=== PATIENT | female | born 1970 | race Caucasian/White ===

== ENCOUNTER 2021-03-14 21:44 | Inpatient (IN) | payer BC, SELFPAY ==
[2021-03-15] MEDS: QUEtiapine Fumarate 25 MG TABLET 12.5 MG PO (02:06)
[2021-03-15] MEDS: Melatonin 3 MG TABLET 6 MG PO (02:08)
--- NOTE | 2021-03-15 02:20 | PC.NURSE ---
Pt is a 50yr old female presented to [facility] after taking 12 1000mg gabapentin. Admitted to M5 unit at 2125 via stretcher. lithographic plate maker was notified put it admitting orders and medications. On admision pt was alert and oriented x4. Flat, depressed affect but cooperative when engaged. Denied physical Pain VSS. When asked to describe reason for admission in own words stated 'i took extra medication to help me sleep, i have been telling everyone i have trouble falling asleep. My got scared and called the ambulance Denied SI. Stated I hope my medications are fixed so I can sleep pt stated to be crying more due to not sleeping, cries due to anxiety over sleep, not sleeping and being tired from not sleeping. Pt stated thi is her first psychiatric admission. For past medical history stated in December i felt my heart beating really fast pt's coworkers called ambulance, pt placed on heart monitor for a month. Was supposed to go get results yesterday. Denied any other medical issues. Stated to have decreased appetite past two weeks. Nurse to nurse was completed prior to admission. Pt signed CV and 3-day. Initial treatment plan completed. Given pm medications. Went to sleep. Currently laying in bed with eyes closed normal respirations. Will continue to monitor and offer support as needed.
--- NOTE | 2021-03-15 05:20 | PC.NURSE ---
PT SIGNED A 3 DAY NOTICE WHICH WILL BE UP ON 03/20/21 (03/19/21 IS A HOLIDAY).
[2021-03-15 06:00] VITALS: BP 131/62; PULSE 67; RESP 18; TEMP 36.5; O2SAT 97
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
[2021-03-15] MEDS: clonazePAM 0.5 MG TABLET PO ×2 (14:33→21:17)
[2021-03-15] MEDS: Lidocaine 4 % Patch ADH..PATCH 1 PATCH TRANSDERMA (16:51)
[2021-03-15] MEDS: Acetaminophen 325 MG TABLET 650 MG PO (16:52)
[2021-03-15 19:02] VITALS: BP 119/66; PULSE 103; TEMP 36.3
[2021-03-15] MEDS: Mirtazapine 15 MG TABLET PO (21:16)
[2021-03-15] MEDS: QUEtiapine Fumarate 25 MG TABLET PO (21:16)
[2021-03-16 06:00] VITALS: BP 112/55; PULSE 54; RESP 18; TEMP 36.7; O2SAT 95
[2021-03-16 07:50] LABS: MANUAL DIFF FLAG NO
[2021-03-16 07:52] LABS: Basophils Absolute Auto 0.1 X10*3/uL (0.0-0.2); Basophils Percent Auto 1.1 % (0-2); Eosinophils Absolute Auto 0.2 X10*3/uL (0.0-0.4); Eosinophils Percent Auto 2.7 % (0-4); Hematocrit 35.4 % (37-47); Hemoglobin 10.6 g/dl (12.0-16.0); Imm Gran Abs Auto 0.02 X10*3/uL (0.00-0.03); Imm Gran Pct Auto 0.3 % (0.0-0.4); Lymphocytes Absolute Auto 2.5 X10*3/uL (1.2-4.9); Lymphocytes Percent Auto 35.1 % (20-40); Mean Corpuscular HGB Conc 29.9 g/dl (31.0-35.0); Mean Corpuscular Volume 70.2 fL (80-98); Mean Platelet Volume 10.2 fL (9.4-12.3); Monocytes Absolute Auto 0.6 X10*3/uL (0.1-1.2); Neutrophils Absolute Auto 3.7 X10*3/uL (2.0-8.3); Neutrophils Percent Auto 52.8 % (45-73); Platelet Count 325 X10*3/uL (160-400); Red Blood Count 5.04 X10*6/uL (4.20-5.50); Red Cell Distribution Width 19.8 % (11.0-16.0)
[2021-03-16 08:08] LABS: Cholesterol 186 mg/dL; HDL Cholesterol 44 mg/dL; LDL Cholesterol Calculated 128 mg/dl; Triglycerides 70 mg/dL
[2021-03-16 08:18] LABS: Anion Gap 9 (12-20); Blood Urea Nitrogen 12 mg/dL (9-16); Carbon Dioxide 30 mmol/L (22-29); Chloride 110 mmol/L (96-108); Potassium 4.3 mmol/L (3.3-5.1); Sodium 145 mmol/L (135-145)
[2021-03-16 08:19] LABS: Alanine Aminotransferase 16 U/L (0-31); Alkaline Phosphatase 67 U/L (39-117); Aspartate Amino Transferase 19 U/L (5-31); Bilirubin Total 0.7 mg/dL (0.0-1.0); Calcium 9.5 mg/dL (8.4-10.2); Estimated Glomerular Filt Rate > 60; Glucose Random 75 mg/dL (60-115); Total Protein 7.1 g/dL (6.5-8.0)
[2021-03-16 08:31] LABS: TSH reflex Free T4 1.93 uIU/mL (0.32-4.0)
[2021-03-16 08:37] LABS: Estimated Average Glucose 85 mg/dL; Hemoglobin A1c % 4.6 %
[2021-03-16 08:43] LABS: Folate 4.2 ng/mL (> or = 4.0); Vitamin B12 222 pg/mL (200-900)
[2021-03-16] MEDS: clonazePAM 0.5 MG TABLET PO ×2 (09:00→20:50)
--- NOTE | 2021-03-16 15:35 | HO.PSYCHPN ---
Subjective Subjective Date of Service: 03/16/21 Reason For Visit: depressive disorder, anxiety disorder Interim History: Pt reports she was able to sleep last night. Tearful when discussing precipitant to admission Very fearful of commitment-asking several questions. Discussed some issues at work and was able to problem solve regarding her return. Discussed self care with pt today Denies SI-decrease in my mind racing at night Review of Systems Psychiatric: Reports abnormal sleep pattern, Reports anxiety, Reports depression and Reports suicidal ideation (denies) Mental Status Exam Mental Status Exam Patient Appearance: Appropriate Patient Orientation: Person, Place, Time and Situation Level of Consciousness: Alert Patient Behavior: Talkative and Good Eye Contact Mood Description: Depressed, Anxious and Apprehensive Affect Description: Flat Patient Cognition Impaired: No Ability to Follow Directions: Good Speech Pattern: Spontaneous Speech Memory Description: Intact Hallucinations: None Delusions: Not Present Thought Process: Distracted and Rumination Thought Content: positive for Intact and positive for Circumstantial Depressive Symptoms: Increased Anxiety, Insomnia and Difficulty Sleeping Judgement: Good Diagnostics Vital Signs (24Hr): Vital Signs - 24 hr 03/15/21 19:02 03/16/21 06:00 Temperature 97.3 F 98.0 F Pulse Rate 103 H 54 Respiratory Rate 18 Blood Pressure 119/66 112/55 L Pulse Oximetry 95 Labs Results: 03/16/21 07:44 03/16/21 07:44 Labs: Laboratory Results - last 48 hr 03/16/21 03/16/21 03/16/21 07:44 07:44 07:44 WBC 7.0 RBC 5.04 Hgb 10.6 L Hct 35.4 L MCV 70.2 L MCH 21.0 L MCHC 29.9 L RDW 19.8 H Plt Count 325 MPV 10.2 Immature Gran % (Auto) 0.3 Neut % (Auto) 52.8 Lymph % (Auto) 35.1 [place] % (Auto) 8.0 Eos % (Auto) 2.7 Baso % (Auto) 1.1 Lymph # (Auto) 2.5 [place] # (Auto) 0.6 Eos # (Auto) 0.2 Baso # (Auto) 0.1 Abs Immat Gran (auto) 0.02 Absolute Neuts (auto) 3.7 Absolute Nucleated RBC 0.000 Nucleated RBC % (auto) 0.0 Sodium Potassium Chloride Carbon Dioxide Anion Gap BUN Creatinine Estim Creat Clear Calc Estimated GFR Random Glucose Estimat Average Glucose Hemoglobin A1c % Calcium Total Bilirubin AST ALT Alkaline Phosphatase Total Protein Albumin Triglycerides 70 Cholesterol 186 LDL Cholesterol, Calc 128 HDL Cholesterol 44 Vitamin B12 222 Folate 4.2 TSH 03/16/21 03/16/21 07:44 07:44 WBC RBC Hgb Hct MCV MCH MCHC RDW Plt Count MPV Immature Gran % (Auto) Neut % (Auto) Lymph % (Auto) [place] % (Auto) Eos % (Auto) Baso % (Auto) Lymph # (Auto) [place] # (Auto) Eos # (Auto) Baso # (Auto) Abs Immat Gran (auto) Absolute Neuts (auto) Absolute Nucleated RBC Nucleated RBC % (auto) Sodium 145 Potassium 4.3 Chloride 110 H Carbon Dioxide 30 H Anion Gap 9 L BUN 12 Creatinine 0.72 Estim Creat Clear Calc TNP Estimated GFR > 60 Random Glucose 75 Estimat Average Glucose 85 Hemoglobin A1c % 4.6 Calcium 9.5 Total Bilirubin 0.7 AST 19 ALT 16 Alkaline Phosphatase 67 Total Protein 7.1 Albumin 4.0 Triglycerides Cholesterol LDL Cholesterol, Calc HDL Cholesterol Vitamin B12 Folate TSH 1.93 Medications Medications Current Medications Acetaminophen (Acetaminophen 325 Mg Tablet) 650 mg PO Q6H PRN PRN Reason: Pain, Moderate (Pain Scale 4-6 Last Admin: 03/15/21 16:52 Dose: 650 mg Documented by: Clonazepam (Clonazepam 0.5 Mg Tablet) 0.5 mg PO BID [facility] Last Admin: 03/16/21 09:00 Dose: 0.5 mg Documented by: Lidocaine (Lidocaine 4 % Patch Adh..Patch) 1 patch TRANSDERMA DAILY [facility]; Protocol Last Admin: 03/16/21 09:01 Dose: Not Given Documented by: Melatonin (Melatonin 3 Mg Tablet) 6 mg PO BEDTIME PRN PRN Reason: Sleep Last Admin: 03/15/21 02:08 Dose: 6 mg Documented by: Mirtazapine (Mirtazapine 15 Mg Tablet) 15 mg PO BEDTIME [facility] Last Admin: 03/15/21 21:16 Dose: 15 mg Documented by: Quetiapine Fumarate (Quetiapine Fumarate 25 Mg Tablet) 25 mg PO BEDTIME [facility] Last Admin: 03/15/21 21:16 Dose: 25 mg Documented by: Allergies Allergies Allergy/AdvReac Type Severity Reaction Status Date / Time No Known Allergies Allergy Verified 03/14/21 19:46 Assessment & Plan Assessment & Plan (1) HAIDER (generalized anxiety disorder): Status: Acute Code(s): F41.1 - Generalized anxiety disorder (2) MDD (major depressive disorder), recurrent episode, mild: Status: Acute Code(s): F33.0 - Major depressive disorder, recurrent, mild Assessment and Plan: Mrs. Gorman is a 50 year-old woman with hx of HAIDER and MDD. She was brought to [facility] after called 911 after pt took 12 tablets of 100mg gabapetin. No medical complications due to OD. On the unit, pt adamantly denies suicidal ideation. Moreover, pt adamantly denies that OD was with intent to end her life. Pt reports sleep disturbances since November affecting her ability to function, increase anxiety. Pt has pending appointment for sleep study. She recently had holter monitor for about one month. We discussed risks, benefits and alternative treatment options. PLAN 1. Admit to M5 2. Start remeron 15mg po qhs for mood/sleep/anxiety. 3. Increase seroquel to 25mg po qhs but if other meds effective, will d/c 4. start clonazepam 0.5mg po BID. 03/16/21: Continue plan of care. Greater than 50% of the session was spent on counseling and/or coordination of care Patient educated on: diagnosis, medication risk/benefits, therapeutic strategies and medical condition Informed Consent: understands Reason for contiued inpatient stay Substantial Risk for: harm to self and inability to function
--- NOTE | 2021-03-16 15:47 | HO.HSGERICON ---
History of Present Illness Data of Consult Service Date: 03/16/21 Requesting physician: Keya Liriano Primary Care Provider: HANNA Abraham Reason for consult: Transfer from outside facility - medical consultation This is a 50-year-old female with history of anxiety and depression admitted to the inpatient psychiatric floor for management of the same. The hospitalists were asked to see her for a routine medical consultation as she was transferred from an outside facility. Patient has no specific medical complaints at this time. Review of Systems Review of Systems: Yes all other systems are reviewed and are negative Constitutional: Constitutional: Denies chills and Denies fever(s) Cardiovascular: Cardiovascular: Denies chest pain Respiratory: Respiratory: Denies cough Gastrointestinal: Gastrointestinal: Denies abdominal pain PMFSH Medical History (Updated 03/16/21 @ 16:24 by ARLENE Diaz) HAIDER (generalized anxiety disorder) Iron deficiency anemia MDD (major depressive disorder), recurrent episode, mild SVT (supraventricular tachycardia) Functional capacity: independent ambulation Pertinent family history: mother had a history of CHF, COPD Surgical History (Updated 03/16/21 @ 16:03 by ARLENE Diaz) H/O section H/O gastric bypass Social History (Updated 03/16/21 @ 16:09 by ARLENE Diaz) Household Members: Spouse Housing: House Do you presently have visiting nurse or other home services: No Alcohol intake: current Alcohol intake frequency: holidays/special occasions only Patient Tobacco Use Status: Never used Tobacco Smoked in Last 30 Days: No Patient Interested in Nicotine Replacement: No Use of substances other than those prescribed or required for medical reasons: No Currently Displaying Signs/Symptoms of Drug Intoxication Withdrawal: No Have you been hit, kicked, punched, or otherwise hurt by someone within the past year? If so, by whom?: No Do you feel safe in your current relationship?: Yes Is there a partner from a previous relationship who is making you feel unsafe now?: No Are you made to feel afraid or neglected: No Advance Directives: No Advance Directives Information Provided: No Do you have thoughts of harming others: None Do you have a plan to hurt others: No Plan service: No Sexual orientation: Straight/Heterosexual Meds Allergies Allergy/AdvReac Type Severity Reaction Status Date / Time No Known Allergies Allergy Verified 03/14/21 19:46 Active Medications: Current Medications Acetaminophen (Acetaminophen 325 Mg Tablet) 650 mg PO Q6H PRN PRN Reason: Pain, Moderate (Pain Scale 4-6 Last Admin: 03/15/21 16:52 Dose: 650 mg Documented by: Clonazepam (Clonazepam 0.5 Mg Tablet) 0.5 mg PO BID [facility] Last Admin: 03/16/21 09:00 Dose: 0.5 mg Documented by: Lidocaine (Lidocaine 4 % Patch Adh..Patch) 1 patch TRANSDERMA DAILY [facility]; Protocol Last Admin: 03/16/21 09:01 Dose: Not Given Documented by: Melatonin (Melatonin 3 Mg Tablet) 6 mg PO BEDTIME PRN PRN Reason: Sleep Last Admin: 03/15/21 02:08 Dose: 6 mg Documented by: Mirtazapine (Mirtazapine 15 Mg Tablet) 15 mg PO BEDTIME [facility] Last Admin: 03/15/21 21:16 Dose: 15 mg Documented by: Quetiapine Fumarate (Quetiapine Fumarate 25 Mg Tablet) 25 mg PO BEDTIME [facility] Last Admin: 03/15/21 21:16 Dose: 25 mg Documented by: Home Medications Medication Instructions Recorded Confirmed Last Taken Type Bactrim DS 1 tab PO Q12H 03/15/21 03/15/21 Unknown History Seroquel 12.5 mg PO DAILY 03/15/21 03/15/21 Unknown History buspirone 5 mg DAILY 03/15/21 03/15/21 Unknown History gabapentin 1 tab PO DAILY 03/15/21 03/15/21 03/13/21 History Results Labs CBC and Chem 7: 03/16/21 07:44 03/16/21 07:44 Labs: Laboratory Results - last 24 hr 03/16/21 03/16/21 03/16/21 07:44 07:44 07:44 MCV 70.2 L MCH 21.0 L MCHC 29.9 L RDW 19.8 H Plt Count 325 MPV 10.2 Immature Gran % (Auto) 0.3 Neut % (Auto) 52.8 Lymph % (Auto) 35.1 [place] % (Auto) 8.0 Eos % (Auto) 2.7 Baso % (Auto) 1.1 Lymph # (Auto) 2.5 [place] # (Auto) 0.6 Eos # (Auto) 0.2 Baso # (Auto) 0.1 Abs Immat Gran (auto) 0.02 Absolute Neuts (auto) 3.7 Absolute Nucleated RBC 0.000 Nucleated RBC % (auto) 0.0 Anion Gap Estim Creat Clear Calc Estimated GFR Random Glucose Estimat Average Glucose Hemoglobin A1c % Calcium Total Bilirubin AST ALT Alkaline Phosphatase Total Protein Albumin Triglycerides 70 Cholesterol 186 LDL Cholesterol, Calc 128 HDL Cholesterol 44 Vitamin B12 222 Folate 4.2 TSH 03/16/21 03/16/21 07:44 07:44 MCV MCH MCHC RDW Plt Count MPV Immature Gran % (Auto) Neut % (Auto) Lymph % (Auto) [place] % (Auto) Eos % (Auto) Baso % (Auto) Lymph # (Auto) [place] # (Auto) Eos # (Auto) Baso # (Auto) Abs Immat Gran (auto) Absolute Neuts (auto) Absolute Nucleated RBC Nucleated RBC % (auto) Anion Gap 9 L Estim Creat Clear Calc TNP Estimated GFR > 60 Random Glucose 75 Estimat Average Glucose 85 Hemoglobin A1c % 4.6 Calcium 9.5 Total Bilirubin 0.7 AST 19 ALT 16 Alkaline Phosphatase 67 Total Protein 7.1 Albumin 4.0 Triglycerides Cholesterol LDL Cholesterol, Calc HDL Cholesterol Vitamin B12 Folate TSH 1.93 Assessment and Plan (1) Iron deficiency anemia: Status: Acute This is a 50-year-old female with a history of anxiety, depression who was transferred from [facility] for management of anxiety/depression after an overdose of gabapentin. Iron deficiency anemia No baseline H/H No indication for transfusion Outpatient follow up h/o SVT has had holter monitor outpatient cardiology follow up There are no other acute medical conditions at this time. Thank you for allowing us to participate in the care of this patient. attending: dr hackett Physical Exam Vital Signs: Last Vital Signs Temp 98.0 F 03/16/21 06:00 Pulse 54 03/16/21 06:00 Resp 18 03/16/21 06:00 BP 112/55 L 03/16/21 06:00 Pulse Ox 95 03/16/21 06:00 Const General: healthy appearing, comfortable, no acute distress, alert and awake Nutritional Appearance: well nourished Orientation/consciousness: patient oriented x3 HENMT Head: Yes normocephalic and Yes atraumatic Eyes Sclerae: sclerae normal Resp Effort & Inspection: normal respiratory effort and no respiratory distress Auscultation: clear to auscultation bilaterally Cardio Rate: regular rate Rhythm: regular rhythm Neuro General: patient oriented x3 Cranial nerves: Yes CN's II-XII intact bilaterally and Yes Bilaterally intact EOM present Extrem Other: no leg edema
[2021-03-16 18:00] VITALS: BP 120/80; PULSE 62; TEMP 36.6
[2021-03-16] MEDS: Mirtazapine 15 MG TABLET PO (20:50)
[2021-03-16] MEDS: QUEtiapine Fumarate 25 MG TABLET PO (20:50)
[2021-03-17 06:02] VITALS: BP 128/61; PULSE 63; RESP 18; TEMP 36.4; O2SAT 97
[2021-03-17] MEDS: clonazePAM 0.5 MG TABLET PO ×2 (08:26→20:37)
--- NOTE | 2021-03-17 20:00 | P.PNPSI_ITS ---
Subjective Subjective Date of Service: 03/17/21 Reason For Visit: depressive disorder, anxiety disorder Subjective Notes: Conditional Voluntary and 3 Day Interim History: Reports she was able to sleep however was restless, up at 3am and was able to take some time to return to sleep which is a similiar pattern at home. Discussed options. Sleep study scheduled in Apr. Reports hx OSVALDO however after bariatric surgery this was not a concern. Medication Compliance: Yes Side effects from medications: No Attending Groups: Yes Review of Systems Medical Review of Systems: unchanged Review of Systems Psychiatric: Reports abnormal sleep pattern, Reports anxiety and Reports depression Mental Status Exam Mental Status Exam Patient Appearance: Appropriate Patient Orientation: Person, Place, Time and Situation Level of Consciousness: Alert Patient Behavior: Talkative and Good Eye Contact Mood Description: Depressed, Anxious and Apprehensive Affect Description: Flat Patient Cognition Impaired: No Ability to Follow Directions: Good Speech Pattern: Spontaneous Speech Memory Description: Intact Hallucinations: None Delusions: Not Present Thought Process: Distracted and Rumination Thought Content: positive for Intact and positive for Circumstantial Depressive Symptoms: Increased Anxiety, Insomnia and Difficulty Sleeping Judgement: Good Diagnostics Vital Signs (24Hr): Vital Signs - 24 hr 03/17/21 06:02 Temperature 97.6 F Pulse Rate 63 Respiratory Rate 18 Blood Pressure 128/61 Pulse Oximetry 97 Labs Results: 03/16/21 07:44 03/16/21 07:44 Labs: Laboratory Results - last 48 hr 03/16/21 03/16/21 03/16/21 07:44 07:44 07:44 WBC 7.0 RBC 5.04 Hgb 10.6 L Hct 35.4 L MCV 70.2 L MCH 21.0 L MCHC 29.9 L RDW 19.8 H Plt Count 325 MPV 10.2 Immature Gran % (Auto) 0.3 Neut % (Auto) 52.8 Lymph % (Auto) 35.1 [place] % (Auto) 8.0 Eos % (Auto) 2.7 Baso % (Auto) 1.1 Lymph # (Auto) 2.5 [place] # (Auto) 0.6 Eos # (Auto) 0.2 Baso # (Auto) 0.1 Abs Immat Gran (auto) 0.02 Absolute Neuts (auto) 3.7 Absolute Nucleated RBC 0.000 Nucleated RBC % (auto) 0.0 Sodium Potassium Chloride Carbon Dioxide Anion Gap BUN Creatinine Estim Creat Clear Calc Estimated GFR Random Glucose Estimat Average Glucose Hemoglobin A1c % Calcium Total Bilirubin AST ALT Alkaline Phosphatase Total Protein Albumin Triglycerides 70 Cholesterol 186 LDL Cholesterol, Calc 128 HDL Cholesterol 44 Vitamin B12 222 Folate 4.2 TSH 03/16/21 03/16/21 07:44 07:44 WBC RBC Hgb Hct MCV MCH MCHC RDW Plt Count MPV Immature Gran % (Auto) Neut % (Auto) Lymph % (Auto) [place] % (Auto) Eos % (Auto) Baso % (Auto) Lymph # (Auto) [place] # (Auto) Eos # (Auto) Baso # (Auto) Abs Immat Gran (auto) Absolute Neuts (auto) Absolute Nucleated RBC Nucleated RBC % (auto) Sodium 145 Potassium 4.3 Chloride 110 H Carbon Dioxide 30 H Anion Gap 9 L BUN 12 Creatinine 0.72 Estim Creat Clear Calc TNP Estimated GFR > 60 Random Glucose 75 Estimat Average Glucose 85 Hemoglobin A1c % 4.6 Calcium 9.5 Total Bilirubin 0.7 AST 19 ALT 16 Alkaline Phosphatase 67 Total Protein 7.1 Albumin 4.0 Triglycerides Cholesterol LDL Cholesterol, Calc HDL Cholesterol Vitamin B12 Folate TSH 1.93 Medications Medications Current Medications Acetaminophen (Acetaminophen 325 Mg Tablet) 650 mg PO Q6H PRN PRN Reason: Pain, Moderate (Pain Scale 4-6 Last Admin: 03/15/21 16:52 Dose: 650 mg Documented by: Clonazepam (Clonazepam 0.5 Mg Tablet) 0.5 mg PO BID [facility] Last Admin: 03/17/21 08:26 Dose: 0.5 mg Documented by: Lidocaine (Lidocaine 4 % Patch Adh..Patch) 1 patch TRANSDERMA DAILY [facility]; P rotocol Last Admin: 03/17/21 08:25 Dose: Not Given Documented by: Melatonin (Melatonin 3 Mg Tablet) 6 mg PO BEDTIME PRN PRN Reason: Sleep Last Admin: 03/15/21 02:08 Dose: 6 mg Documented by: Mirtazapine (Mirtazapine 7.5 Mg Tablet) 22.5 mg PO BEDTIME [facility] Quetiapine Fumarate (Quetiapine Fumarate 25 Mg Tablet) 25 mg PO BEDTIME [facility] Last Admin: 03/16/21 20:50 Dose: 25 mg Documented by: Allergies Allergies Allergy/AdvReac Type Severity Reaction Status Date / Time No Known Allergies Allergy Verified 03/14/21 19:46 Assessment & Plan Assessment & Plan (1) HAIDER (generalized anxiety disorder): Status: Acute Code(s): F41.1 - Generalized anxiety disorder (2) MDD (major depressive disorder), recurrent episode, mild: Status: Acute Code(s): F33.0 - Major depressive disorder, recurrent, mild Assessment and Plan: Mrs. Gorman is a 50 year-old woman with hx of HAIDER and MDD. She was brought to [facility] after called 911 after pt took 12 tablets of 100mg gabapetin. No medical complications due to OD. On the unit, pt adamantly denies suicidal ideation. Moreover, pt adamantly denies that OD was with intent to end her life. Pt reports sleep disturbances since November affecting her ability to function, increase anxiety. Pt has pending appointment for sleep study. She recently had holter monitor for about one month. We discussed risks, benefits and alternative treatment options. PLAN 1. Admit to M5 2. Start remeron 15mg po qhs for mood/sleep/anxiety. 3. Increase seroquel to 25mg po qhs but if other meds effective, will d/c 4. start clonazepam 0.5mg po BID. 03/17/21: Some improvement in sleep. Continues with rumination/anxiety. -Increase Remeron to 22.5 mg HS Greater than 50% of the session was spent on counseling and/or coordination of care Patient educated on: medication risk/benefits and therapeutic strategies Informed Consent: understands Reason for contiued inpatient stay Substantial Risk for: harm to self, inability to function and rapid decompensation
[2021-03-17] MEDS: Mirtazapine 7.5 MG TABLET 22.5 MG PO (20:36)
[2021-03-17] MEDS: QUEtiapine Fumarate 25 MG TABLET PO (20:37)
[2021-03-17 20:45] VITALS: BP 132/73; PULSE 87; TEMP 36.4; O2SAT 98
[2021-03-18 06:00] VITALS: BP 125/58; PULSE 61; RESP 16; TEMP 36; O2SAT 97
[2021-03-18] MEDS: clonazePAM 0.5 MG TABLET PO ×2 (08:43→20:46)
--- NOTE | 2021-03-18 16:47 | P.PNPSI_ITS ---
Subjective Subjective Date of Service: 03/18/21 Reason For Visit: depressive disorder, anxiety disorder Interim History: Reports medicine began to work 1/2 hour after taking. Up at ~320 am for the bathroon and able to get back to sleep. Reports restful sleep but tossing/turning. Discussed temporary increase of Seroquel until Remeron becomes more established. Medication Compliance: Yes Side effects from medications: No Attending Groups: Yes Review of Systems Acute medical concerns: No Medical Review of Systems: unchanged Review of Systems Psychiatric: Reports abnormal sleep pattern, Reports anxiety, Reports depression and Reports suicidal ideation (denies) Mental Status Exam Mental Status Exam Patient Appearance: Appropriate Patient Orientation: Person, Place, Time and Situation Level of Consciousness: Alert Patient Behavior: Talkative and Good Eye Contact Mood Description: Depressed, Anxious and Apprehensive Affect Description: Flat Patient Cognition Impaired: No Ability to Follow Directions: Good Speech Pattern: Spontaneous Speech Memory Description: Intact Hallucinations: None Delusions: Not Present Thought Process: Distracted and Rumination Thought Content: positive for Intact and positive for Circumstantial Depressive Symptoms: Increased Anxiety, Insomnia and Difficulty Sleeping Judgement: Good Diagnostics Vital Signs (24Hr): Vital Signs - 24 hr 03/17/21 20:45 03/18/21 06:00 Temperature 97.6 F 96.8 F Pulse Rate 87 61 Respiratory Rate 16 Blood Pressure 132/73 125/58 L Pulse Oximetry 98 97 Labs Results: 03/16/21 07:44 03/16/21 07:44 Medications Medications Current Medications Acetaminophen (Acetaminophen 325 Mg Tablet) 650 mg PO Q6H PRN PRN Reason: Pain, Moderate (Pain Scale 4-6 Last Admin: 03/15/21 16:52 Dose: 650 mg Documented by: Clonazepam (Clonazepam 0.5 Mg Tablet) 0.5 mg PO BID [facility] Last Admin: 03/18/21 08:43 Dose: 0.5 mg Documented by: Lidocaine (Lidocaine 4 % Patch Adh..Patch) 1 patch TRANSDERMA DAILY [facility]; Protocol Last Admin: 03/18/21 08:44 Dose: Not Given Documented by: Melatonin (Melatonin 3 Mg Tablet) 6 mg PO BEDTIME PRN PRN Reason: Sleep Last Admin: 03/15/21 02:08 Dose: 6 mg Documented by: Mirtazapine (Mirtazapine 7.5 Mg Tablet) 22.5 mg PO BEDTIME [facility] Last Admin: 03/17/21 20:36 Dose: 22.5 mg Documented by: Quetiapine Fumarate (Quetiapine Fumarate 50 Mg Tablet) 50 mg PO BEDTIME [facility] Allergies Allergies Allergy/AdvReac Type Severity Reaction Status Date / Time No Known Allergies Allergy Verified 03/14/21 19:46 Assessment & Plan Assessment & Plan (1) HAIDER (generalized anxiety disorder): Status: Acute Code(s): F41.1 - Generalized anxiety disorder (2) MDD (major depressive disorder), recurrent episode, mild: Status: Acute Code(s): F33.0 - Major depressive disorder, recurrent, mild Assessment and Plan: Mrs. Gorman is a 50 year-old woman with hx of HAIDER and MDD. She was brought to [facility] after called 911 after pt took 12 tablets of 100mg gabapetin. No medical complications due to OD. On the unit, pt adamantly denies suicidal ideation. Moreover, pt adamantly denies that OD was with intent to end her life. Pt reports sleep disturbances since November affecting her ability to function, increase anxiety. Pt has pending appointment for sleep study. She recently had holter monitor for about one month. We discussed risks, benefits a nd alternative treatment options. PLAN 1. Admit to M5 2. Start remeron 15mg po qhs for mood/sleep/anxiety. 3. Increase seroquel to 25mg po qhs but if other meds effective, will d/c 4. start clonazepam 0.5mg po BID. 03/17/21: Some improvement in sleep. Continues with rumination/anxiety. -Increase Remeron to 22.5 mg HS 03/18/21: Reports restful sleep with tossing/turning -Increase Seroquel to 50 mg hs (temporary increase) Greater than 50% of the session was spent on counseling and/or coordination of care Patient educated on: medication risk/benefits and therapeutic strategies Informed Consent: understands Reason for contiued inpatient stay Substantial Risk for: harm to self, inability to function and rapid decompensation
[2021-03-18] MEDS: QUEtiapine Fumarate 50 MG TABLET PO (20:47)
[2021-03-18] MEDS: Mirtazapine 7.5 MG TABLET 22.5 MG PO (20:47)
[2021-03-18 21:02] VITALS: BP 124/59; PULSE 102; TEMP 36.6; O2SAT 97
[2021-03-19 06:00] VITALS: BP 124/59; PULSE 67; RESP 18; TEMP 36.2; O2SAT 98
[2021-03-19] MEDS: clonazePAM 0.5 MG TABLET PO ×2 (08:23→20:56)
[2021-03-19 18:00] VITALS: BP 143/67; PULSE 77; TEMP 36.4
[2021-03-19] MEDS: Mirtazapine 7.5 MG TABLET 22.5 MG PO (20:55)
[2021-03-19] MEDS: QUEtiapine Fumarate 50 MG TABLET PO (20:55)
--- NOTE | 2021-03-19 20:56 | P.PNPSI_ITS ---
Subjective Subjective Date of Service: 03/19/21 Reason For Visit: depressive disorder, anxiety disorder Subjective Notes: Conditional Voluntary and 3 Day Interim History: Ofe reports a restless sleep last night but with environmental stimuli-light, increase temp in the room which was not comfortable, increase in noise, room-mate requiring the door to be open. H owever, she reports having slept through her usual 3 am wake up BRONSON sx. Continues with some latency sx, however, believes this may improve with being at home. Also reports being able to return to sleep is easier for her. Three day notice expires 05/20/21. Pt reports no suicidal ideation, plan intent. OSVALDO eval scheduled for early April. Letter written for pt for excused absence from work. Medication Compliance: Yes Side effects from medications: No Attending Groups: Yes Review of Systems Acute medical concerns: No Medical Review of Systems: unchanged Review of Systems Psychiatric: Reports no additional psychiatric complaints, Reports abnormal sleep pattern, Reports anxiety and Reports suicidal ideation (denies) Mental Status Exam Mental Status Exam Patient Appearance: Appropriate Patient Orientation: Person, Place, Time and Situation Level of Consciousness: Alert Patient Behavior: Talkative and Good Eye Contact Mood Description: Anxious and Apprehensive Affect Description: Flat Patient Cognition Impaired: No Ability to Follow Directions: Good Speech Pattern: Spontaneous Speech Memory Description: Intact Hallucinations: None Delusions: Not Present Thought Process: Intact Thought Content: positive for Intact and positive for Circumstantial Depressive Symptoms: Increased Anxiety, Insomnia and Difficulty Sleeping Judgement: Good Diagnostics Vital Signs (24Hr): Vital Signs - 24 hr 03/18/21 21:02 03/19/21 06:00 Temperature 97.9 F 97.2 F Pulse Rate 102 H 67 Respiratory Rate 18 Blood Pressure 124/59 L 124/59 L Pulse Oximetry 97 98 Labs Results: 03/16/21 07:44 03/16/21 07:44 Medications Medications Current Medications Acetaminophen (Acetaminophen 325 Mg Tablet) 650 mg PO Q6H PRN PRN Reason: Pain, Moderate (Pain Scale 4-6 Last Admin: 03/15/21 16:52 Dose: 650 mg Documented by: Clonazepam (Clonazepam 0.5 Mg Tablet) 0.5 mg PO BID [facility] Last Admin: 03/19/21 08:23 Dose: 0.5 mg Documented by: Lidocaine (Lidocaine 4 % Patch Adh..Patch) 1 patch TRANSDERMA DAILY [facility]; Protocol Last Admin: 03/19/21 08:24 Dose: Not Given Documented by: Melatonin (Melatonin 3 Mg Tablet) 6 mg PO BEDTIME PRN PRN Reason: Sleep Last Admin: 03/15/21 02:08 Dose: 6 mg Documented by: Mirtazapine (Mirtazapine 7.5 Mg Tablet) 22.5 mg PO BEDTIME [facility] Last Admin: 03/18/21 20:47 Dose: 22.5 mg Documented by: Quetiapine Fumarate (Quetiapine Fumarate 50 Mg Tablet) 50 mg PO BEDTIME [facility] Last Admin: 03/18/21 20:47 Dose: 50 mg Documented by: Allergies Allergies Allergy/AdvReac Type Severity Reaction Status Date / Time No Known Allergies Allergy Verified 03/14/21 19:46 Assessment & Plan Assessment & Plan (1) HAIDER (generalized anxiety disorder): Status: Acute Code(s): F41.1 - Generalized anxiety disorder (2) MDD (major depressive disorder), recurrent episode, mild: Status: Acute Code(s): F33.0 - Major depressive disorder, recurrent, mild Assessment and Plan: Mrs. Gorman is a 50 year-old woman with hx of HAIDER and MDD. She was brought to [facility] after called 911 after pt took 12 tablets of 100mg gabapetin. No medical complications due to OD. On the unit, pt adamantly denies suicidal ideation. Moreover, pt adamantly denies that OD was with intent to end her life. Pt reports sleep disturbances since November affecting her ability to function, increase anxiety. Pt has pending appointment for sleep study. She recently had holter monitor for about one month. We discussed risks, benefits and alternative treatment options. PLAN 1. Admit to M5 2. Start remeron 15mg po qhs for mood/sleep/anxiety. 3. Increase seroquel to 25mg po qhs but if other meds effective, will d/c 4. start clonazepam 0.5mg po BID. 03/17/21: Some improvement in sleep. Continues with rumination/anxiety. -Increase Remeron to 22.5 mg HS 03/18/21: Reports restful sleep with tossing/turning -Increase Seroquel to 50 mg hs (temporary increase) 03/19/21: Reports restless sleep with ability to remain asleep through 3am BRONSON time and improved ability to return to sleep. Three day notice to 03/20. Discharge planned. Greater than 50% of the session was spent on counseling and/or coordination of care Patient educated on: medication risk/benefits and therapeutic strategies Informed Consent: understands Reason for contiued inpatient stay Substantial Risk for: stable for discharge
[2021-03-20 06:00] VITALS: BP 133/58; PULSE 64; RESP 18; TEMP 36.1; O2SAT 97
[2021-03-20 08:35] VITALS: BP 120/60; PULSE 71; RESP 18; TEMP 36.1; O2SAT 98
[2021-03-20] MEDS: clonazePAM 0.5 MG TABLET PO (08:39)
--- NOTE | 2021-03-20 11:35 | P.DS_ITS ---
DS: Providers Provider Date of Service: 03/20/21 <Ana Luisa Guerra - Last Filed: 03/20/21 14:25> Date of admission: 03/14/21 21:44 <Ana Luisa Guerra - Last Filed: 03/20/21 14:25> Primary care physician: Laverne Renteria NP <Ana Luisa Guerra Last Filed: 03/20/21 14:25> Consults: 03/14/21 19:46 Consult to Hospitalist Routine Consulting Provider: Hospitalist Reason For Exam: Transfer from [place] <Ana Luisa Guerra - Last Filed: 03/20/21 14:25> DS: Diagnosis Discharge Diagnosis (1) HAIDER (generalized anxiety disorder): Status: Acute <Ana Luisa Guerra Last Filed: 03/20/21 14:25> (2) MDD (major depressive disorder), recurrent episode, mild: Status: Acute <AnaL uisa Guerra Last Filed: 03/20/21 14:25> DS: Medications Discharge Medications Home Medications: Previous Rx's Medication Instructions Recorded clonazepam 0.5 mg tablet 0.5 mg PO BID #14 tab 03/19/21 melatonin 3 mg tablet 6 mg PO BEDTIME PRN #60 tab 03/19/21 mirtazapine 7.5 mg tablet 22.5 mg PO BEDTIME #21 tab 03/19/21 quetiapine 50 mg tablet 50 mg PO BEDTIME #7 tab 03/19/21Ana Luisa Guerra Last Filed: 03/20/21 14:25> Mental Status Exam Mental Status Exam Narrative: Appearance: casually groomed, fair hygiene in NAD Behavior: cooperative psychomotor: no agitation or retardation noted Speech:clear, normal rate/rhythm/volume, spontaneous Thought process:linear Thought content:no signs of psychosis, future oriented, hopeful Mood: better Affect: congruent, brighter, non labile SI:denies HI:none VH/AH:none Delusions:none Insight/judgment:fair x 2. Memory/cog: alert, oriented x 3. grossly intact to conversational testing. Ana Luisa Guerra Last Filed: 03/20/21 14:25> Data Data Completed and Pending Completed studies during hospitalization [Text1]: 03/16/21 03/16/21 03/16/21 07:44 07:44 07:44 WBC 7.0 RBC 5.04 Hgb 10.6 L Hct 35.4 L MCV 70.2 L MCH 21.0 L MCHC 29.9 L RDW 19.8 H Plt Count 325 MPV 10.2 Immature Gran % (Auto) 0.3 Neut % (Auto) 52.8 Lymph % (Auto) 35.1 Coke % (Auto) 8.0 Eos % (Auto) 2.7 Baso % (Auto) 1.1 Lymph # (Auto) 2.5 Coke # (Auto) 0.6 Eos # (Auto) 0.2 Baso # (Auto) 0.1 Abs Immat Gran (auto) 0.02 Absolute Neuts (auto) 3.7 Absolute Nucleated RBC 0.000 Nucleated RBC % (auto) 0.0 Sodium Potassium Chloride Carbon Dioxide Anion Gap BUN Creatinine Estim Creat Clear Calc Estimated GFR Random Glucose Estimat Average Glucose Hemoglobin A1c % Calcium Total Bilirubin AST ALT Alkaline Phosphatase Total Protein Albumin Triglycerides 70 Cholesterol 186 LDL Cholesterol, Calc 128 HDL Cholesterol 44 Vitamin B12 222 Folate 4.2 TSH 03/16/21 03/16/21 07:44 07:44 WBC RBC Hgb Hct MCV MCH MCHC RDW Plt Count MPV Immature Gran % (Auto) Neut % (Auto) Lymph % (Auto) Coke % (Auto) Eos % (Auto) Baso % (Auto) Lymph # (Auto) Coke # (Auto) Eos # (Auto) Baso # (Auto) Abs Immat Gran (auto) Absolute Neuts (auto) Absolute Nucleated RBC Nucleated RBC % (auto) Sodium 145 Potassium 4.3 Chloride 110 H Carbon Dioxide 30 H Anion Gap 9 L BUN 12 Creatinine 0.72 Estim Creat Clear Calc TNP Estimated GFR > 60 Random Glucose 75 Estimat Average Glucose 85 Hemoglobin A1c % 4.6 Calcium 9.5 Total Bilirubin 0.7 AST 19 ALT 16 Alkaline Phosphatase 67 Total Protein 7.1 Albumin 4.0 Triglycerides Cholesterol LDL Cholesterol, Calc HDL Cholesterol Vitamin B12 Folate TSH 1.93 <Ana Luisa Guerra - Last Filed: 03/20/21 14:25> DS: Summary Hospital Course Hospital Course: HPI: Mrs. Gorman is a 50 year-old woman with hx of MDD and HAIDER who was brought to [facility] after her call 911 as pt had taken extra gabapentin. Per [facility] crisis report dated, Mrs. Gorman took 12 tablets of Gabapentin 100mg. Per crisis report pt stated she just wanted to sleep. In the ED, utox is negative. On the unit, pt presents as slightly anxious. Pt adamantly denies that that OD on gabapentin was with intent to end her life. Pt reports difficulty staying asleep since November. Pt reports feeling increasingly more tired, anxious. She reports lack of sleep driving increase anxious mood and to some extend depression although pt notes that depressed mood is not as prominent. Pt denies hx of visual or auditory hallucinations. Pt denies hx of symptoms suggestive of hypomania or ida. Past Psychiatric History: Inpatient: none OP: therapist Joselyn Hull [phone] Psychiatric Prescriber Robyn Jin ([phone]) suicide attempts: none Past medication trials: celexa, paxil, citalopram, effexor, wellbutrin, gabapentin, clonazepam, seroquel Medical Evaluation Reviewed: Yes HOSPITAL COURSE Mrs. Gorman was admitted on CV and placed on 15 minutes checks for safety. On the unit, Mrs. Gorman adamantly denies that OD on gabapentin was with intent to end her life. She reported difficulty falling and staying asleep. She reports several medications trials recently including seroquel, several antidepressant and gabapentin. Pt is pending sleep study to rule out underlying medical conditions affecting her sleep. After discussing risks, benefits and alternative treatment options. Pt agreed to start remeron for depression, anxiety and sleep. It was added low dose of clonazepam for anxious mood as remeron is more effective. Her affect gradually appeared much brighter. She reported less anxious mood and able to participate in assigned groups. She reported improved sleep- sleeping most of the night with much less tossing and turning. She denied suicidal or homicidal ideation throughout this hospital stay. She was visible in the unit and attended assigned groups. There were no incidences of disruptive behaviors nor use of restraints. Collateral information gathered from her who denies any safety concerns at time of discharged and agrees with discharge plan. <Ana Luisa Guerra - Last Filed: 03/20/21 14:25> Time spent discussing smoking cessation with patient: 3 to 10 minutes <Ana Luisa Guerra - Last Filed: 03/20/21 14:25> Status at Discharge Cognitive/behavioral status at discharge: Pt less anxious, less depressed. No SI/HI. Improved sleep which was driving anxious mood and frustrations. No signs of aggression towards self or others. <Ana Luisa Huertadomenico - Last Filed: 03/20/21 14:25> Functional status at discharge: independent ambulation <Ana Luisa Guerra - Last Filed: 03/20/21 14:25> Overall status at discharge: patient is progressing back to baseline <Ana Luisa Guerra - Last Filed: 03/20/21 14:25> Time Spent with Patient Time attestation: Total time spent providing and/or coordinating discharge services: <Ana Luisa Huertadomenico - Last Filed: 03/20/21 14:25> Discharge Plan Discharge Anticipated Discharge Date/Time: 03/20/21 12:21 <Ana Luisa Huertadomenico - Last Filed: 03/20/21 14:25> Patient Disposition: Home, Self-Care <Ana Luisa Geurra - Last Filed: 03/20/21 14:25> Discharge Diagnosis: Recurrent major depression Generalized Anxiety Disorder <Ana Luisa Huertadomenico - Last Filed: 03/20/21 14:25> Recurrent major depression Generalized Anxiety Disorder <Daniel Alejo MD - Last Filed: 03/21/21 11:12> Referrals: ROBYN JIN [Other] - 1 Week JOSELYN HULL [facility] [Other] - 1 Week (TELEHEALTH) Laverne Renteria NP [Primary Care Provider] - 03/28/21 10:00 am (in office) <Ana Luisa Huertadomenico - Last Filed: 03/20/21 14:25> Discharge Medications: New clonazepam 0.5 mg Tablet 0.5 mg PO BID Qty: 14 RF: 4 melatonin 3 mg Tablet 6 mg PO BEDTIME PRN (Reason: Sleep) Qty: 60 RF: 0 mirtazapine 7.5 mg Tablet 22.5 mg PO BEDTIME Qty: 21 RF: 4 quetiapine 50 mg Tablet 50 mg PO BEDTIME Qty: 7 RF: 4 Discontinued gabapentin 100 mg 1 tab PO DAILY RF: 0 Bactrim DS 1 tab PO Q12H RF: 0 Seroquel 25 mg 12.5 mg PO DAILY RF: 0 buspirone 5 mg 5 mg DAILY RF: 0 <Ana Luisa Huertadomenico - Last Filed: 03/20/21 14:25> Discharge Orders: Discharge Order (Routine); Ordered 03/20/21 Ordered By: Ana Luisa Guerra <Ana Luisa Guerra - Last Filed: 03/20/21 14:25> Diet: advance to usual diet <Ana Luisa Guerra - Last Filed: 03/20/21 14:25> advance to usual diet <Daniel Alejo MD - Last Filed: 03/21/21 11:12> Activity on Discharge: As tolerated <Ana Luisa Guerra - Last Filed: 03/20/21 14:25> As tolerated <Daniel Alejo MD - Last Filed: 03/21/21 11:12> Stand Alone Forms: Patient Portal Discharge page, Community Support <Ana Luisa Guerra - Last Filed: 03/20/21 14:25> Care Plan Goals: Mood Stabilization Improved Sleep <Ana Luisa Guerra - Last Filed: 03/20/21 14:25> Health Concerns: Recurrent Major Depression Generalized Anxiety Disorder <Ana Luisa Guerra - Last Filed: 03/20/21 14:25> Plan of Treatment: Take medications as directed Attend all appointments Follow up with your sleep study appointment in April 2021. <Ana Luisa Guerra - Last Filed: 03/20/21 14:25> Assessment: Pt with brighter affect. She reports sleep much improved. No SI/HI. No Signs of aggression towards self or others. <Ana Luisa Guerra - Last Filed: 03/20/21 14:25> Discharge Date/Time: 03/20/21 15:39 <Ana Luisa Guerra - Last Filed: 03/20/21 14:25>
--- NOTE | 2021-03-23 11:51 | PM.EVENT ---
Event Note Date of Service: 03/23/21 Event Note: 03/22/21: Call from pt who reports appt with prescriber today where they terminated, prescriber not willing to cover pt until she finds another resource. Pt has made calls and will be seeing Bailey of [employer] on 04/02/21. Pt reports she is waking up tired and foggy wanting to sleep all day. She is concerned as she is scheduled to return to work on 03/26. Taking medications at 8pm and continues to feel anxious and shakey. Discussed decreasing Remeron from 22.5 mg to 15 mg and decreasing Seroquel from 50 mg to 25 mg. Will keep klonopin in place at 0.5 mg bid. Pt reports she is not suicidal and will implement and contact us on 03/23/21. 03/23/21: Call from pt who reports she did decrease medications as we discussed on 03/22. She reports she took meds at ~8pm was awake at 11:30 pm, returned to sleep. Her dog awoke her at 1am, she returned to sleep until 330am, then returned to sleep until her husbands alarm sounded at 6am. Currently she feels a bit oversedate and has been resting all morning. She does continue with anxiety. She reports she is not suicidal or depressed. Discussed keeping Remeron at 15 mg, holding Seroquel and decreasing Klonopin to 0.5 mg hs or 0.25 mg bid. She will trial this throughout the weekend and call on 03/26 if we need to extend her time regarding staying out of work due to medication adjusting. Overall she reports sleep quality/quantity improving but this is taking time.
--- NOTE | 2021-03-27 14:31 | PM.EVENT ---
Event Note Date of Service: 03/27/21 Event Note: Call from pt on 03/26/21 who reports that on 03/23 she did not take Seroquel and could not sleep. States 50 mg Seroquel makes her too groggy and 25 mg Seroquel is not enough. Upon awakening she feels shakey and nervous. Remeron she continues to find helpful at 15 mg but unsure if dosing will need to increase. Discussed consolidation of Klonopin to 1 mg hs to assist in mgt of anxiety during the day. Reports feeling groggy this morning. States she is taking her meds at 2030. Will try 1930 and will take Seroquel 25 mg Klonopin 1 mg and Remeron 15 mg tonight. 03/27/21 Call from pt who reports she slept last night. Today, at work she was feeling anxious and tearful. She has a psychotherapy appointment today at 1500 and will discuss this sx with her therapist as she reports no anxiety or tearfulness when not at work. Encouraged to keep regime in place-Remeron 15 mg HS, Klonopin 1 mg HS and Seroquel 25 mg HS and to call as needed. Pt denies SI plan or intent.
--- NOTE | 2021-03-28 15:17 | PM.EVENT ---
Event Note Date of Service: 03/28/21 Event Note: TC from pt who reports she was able to sleep last night except for waking up for the dog and for a bathroom break. She is anxious at work and plans to return to the divided klonopin dosing of 0.5 mg bid. She will see her PCP on 03/29 and meet her new prescriber on 04/02. She denies SI, HI and sx of depression. She reports she met with her therapist on 03/27 and was encouraged to keep attending work and allow time for medicine to take effect.
== END 2021-03-20 15:39 | disposition home or self-care (01) | DRG 751 ==
PROVIDERS: Admitting Provider Psychiatry & Neurology Psychiatry; PCP Nurse Practitioner Family; Visit Provider Social Worker
DX: F33.0 Major depressive disorder, recurrent, mild (principal); D50.9 Iron deficiency anemia, unspecified; F41.1 Generalized anxiety disorder; Z98.84 Bariatric surgery status; Z79.899 Other long term (current) drug therapy
CPT/HCPCS: 36415; 80053; 80061; 82607; 82746; 83036; 84443; 85025